=== PATIENT | female | born 1945 | race Caucasian/White ===

== ENCOUNTER → 2017-02-21 | Outpatient (CLI) | payer MEDICARE ==
--- NOTE | 2017-02-23 12:24 | PCVCIMAG ---
APPROVED REPORT Exam: Comprehensive 2D, Doppler, and color-flow Echocardiogram Indication: Elevated cor ca score, Family hx CAD Patient Location: Echo lab Stress Nurse: Karyn Bowie RN Status: routine Ht: 5 ft 5 in HR: 65 bpm BP: 114/78 mmHg Rhythm: NSR Medical History Medical History: CAD non obstructive, HTN Cardiac Risk Factors: HTN, FHX of CAD Pretest Chest Pain Characteristics: Atypical angina Exercise History: Physically active Procedure The patient underwent an Exercise Stress Test using the Ana Maria Protocol. Blood pressure, heart rate, and EKG were monitored. An Echocardiogram was performed by optometric technician in four stages in quad fashion. At peak stress, four selected images were obtained and placed side by side with resting images for comparison. Stress Test Details Stress Test: Exercise stress testing was performed using a Ana Maria protocol. HR Resting HR: 65 bpmMax Heart Rate (APMHR): 147 bpm Max HR Achieved: 148 bpmTarget HR (85% APMHR): 124 bpm % of APMHR: 100 Recovery HR: 196 bpm HR response to stress: SVT seen during recovery BP Resting BP: 114/78 mmHg Max BP: 140/70 mmHg Recovery BP: 144/66 mmHg ECG Resting ECG: Sinus Rhythm Stress ECG: Sinus Rhythm ST Change: Non-ischemic Maximum ST Deviation: 1.15 mm Arrhythmia: None Recovery ECG: Sinus Rhythm Recovery ST Change: Non-ischemic Recovery ST Deviation: 1 mm Recovery Arrhythmia: SVT Clinical Reason for Termination: Maximal effort Stress Symptoms: none Exercise duration: 8 min 01 sec Highest Stage Achieved: Stage 3: 3.4 mph at 14% grade. Exercise capacity: 10.1 METs Overall Exercise Capacity for Age: Good Angina Score: None Stress ECG Conclusion The patient exercised according to the ANA MARIA for 8:01 minutes, achieving a work level of Max. METS: 10.1 The resting heart rate of 65 bpm xavier to a maximal heart rate of 148 bpm during stress. This value represents 100 % of the maximal, age-predicted heart rate. During recovery a run of SVT was seen which resolved with breathing manipulation. The resting blood pressure of 114/78 mmHg, xavier to a maximum blood pressure of 144/66 The exercise test was stopped due to fatigue . Eid Treadmill Score is 2.3 which is Moderate risk. Pre-Stress Echo The resting Echocardiogram showed normal left ventricular contractility with an estimated Ejection Fraction of about 55-60%. Normal wall motion in all segments on baseline images. Post-Stress Echo The stress Echocardiogram showed normal left ventricular contractility with an estimated Ejection Fraction of about 65-70%. Normal augmentation of wall motion in all segments on post stress images. Clinical No clinical or ECG evidence for ischemia. Conclusion Clinical Response: Non-ischemic Exercise Capacity: Average Stress ECG Response: Non-ischemic Stress Echo Images: Non-ischemic No echocardiographic evidence for exercise induced ischemia. No clinical, EKG or echocardiographic evidence for ischemia. Small VSD is seen with minimal left to right shunting. Other Information Study Quality: Good <Conclusion> No echocardiographic evidence for exercise induced ischemia. No clinical, EKG or echocardiographic evidence for ischemia. Small VSD is seen with minimal left to right shunting.
== END | disposition home or self-care (01) ==
LOC: PCVCIMAG 14:58
PROVIDERS: ATTEND Internal Medicine Cardiovascular Disease
DX: I25.10 Atherosclerotic heart disease of native coronary artery without angina pectoris (principal); Q21.0 Ventricular septal defect; I10 Essential (primary) hypertension; E78.00 Pure hypercholesterolemia, unspecified; M81.0 Age-related osteoporosis without current pathological fracture; R93.1 Abnormal findings on diagnostic imaging of heart and coronary circulation; I47.1 Supraventricular tachycardia; M19.90 Unspecified osteoarthritis, unspecified site; R73.03 Prediabetes; Z88.2 Allergy status to sulfonamides; Z82.49 Family history of ischemic heart disease and other diseases of the circulatory system; Z78.0 Asymptomatic menopausal state; Z88.8 Allergy status to other drugs, medicaments and biological substances
CPT/HCPCS: 93005; 93325; 93351; G0463

== ENCOUNTER → 2017-02-21 | Outpatient (CLI) | payer MEDICARE | END | disposition home or self-care (01) | LOC: PCVCCLINIC 14:33 | PROVIDERS: ATTEND Internal Medicine Cardiovascular Disease | DX: I25.10 Atherosclerotic heart disease of native coronary artery without angina pectoris (principal); I10 Essential (primary) hypertension; E78.00 Pure hypercholesterolemia, unspecified; R07.9 Chest pain, unspecified; Z79.899 Other long term (current) drug therapy | CPT/HCPCS: 80061; 93005; G0463 ==

== ENCOUNTER → 2018-02-21 | Outpatient (CLI) | payer MEDICARE | END | disposition home or self-care (01) | LOC: PCVCCLINIC 14:29 | PROVIDERS: ATTEND Internal Medicine Cardiovascular Disease | DX: I10 Essential (primary) hypertension (principal); I25.10 Atherosclerotic heart disease of native coronary artery without angina pectoris; E78.00 Pure hypercholesterolemia, unspecified; M19.90 Unspecified osteoarthritis, unspecified site; Z88.8 Allergy status to other drugs, medicaments and biological substances; Z79.899 Other long term (current) drug therapy | CPT/HCPCS: 80061; 93005; G0463 ==